=== PATIENT | female | born 1955 | race Hispanic/Latino ===

== ENCOUNTER → 2017-12-23 | Day surgery (SDC) | payer MEDICARE ==
[2017-12-22 11:30] LABS: BLOOD UREA NITROGEN 14 mg/dL (7-26); BUN/CREATININE RATIO 18 (6-25); CALCIUM 10.2 mg/dL (8.4-10.2); CARBON DIOXIDE 29 mmol/L (22-29); CHLORIDE 104 mmol/L (98-107); CREATININE, SERUM 0.79 mg/dL (0.57-1.11); EST GLOMERULAR FILTRATION RATE > 60 ML/MIN (60-); GLUCOSE 116 mg/dL (74-118); SODIUM 142 mmol/L (136-145)
[~2017-12-23] MED LIST: BACITRACIN 50,000 UNIT VIAL ONE; BUPIVACAINE 0.25%/EPI 30ML SDV INJ ONE; CEFAZOLIN SOD 1 GM VIAL ONE; DEXAMETHASONE SOD PHOS INJ 4 MG/ML VIAL ONE; ESTROGENS CONJUGATED VAGINAL CR 45 GM TUBE PV ONE; FENTANYL CITRATE/PF 100MCG/2 ML INJ ONE; HYDROMORPHONE 1MG/1ML INJ ONE; IOPAMIDOL 300MG/ML 50ML INFUS..BTL IV ONE; LIDOCAINE HCL 2% LOCAL INJ 5 ML SDV VIAL INJ ONE; LISINOPRIL PO; LISINOPRIL-HCT1 EAC2; MACRODANTIN100 MG PO; METHYLENE BLUE 1% INJ 10 ML VIAL INJ ONE; MIDAZOLAM HCL 2 MG/2 ML VIAL ONE; ONDANSETRON HCL INJ 2 MG/ML VIAL ONE; OXYBUTYNIN PO; PROPOFOL IV EMULSION 10 MG/ML 20 ML VIAL ONE; SEVOFLURANE INHAL SOLN 250 ML PEN BTL ONE; SODIUM CHLORIDE 0.9% INH ONE; TOBRAMYCIN 40 MG/ML 2ML VIAL ONE; TOBRAMYCIN INH ONE; ULTRAM50 MG PO
--- NOTE | 2017-12-23 17:32 | Operative Report ---
DATE OF PROCEDURE: December 23, 2017 PREOPERATIVE DIAGNOSES 1. Stress urinary incontinence. 2. Small cystocele. 3. Bladder lesions. 4. Cystitis cystica (?). 5. History of urinary tract infection. POSTOPERATIVE DIAGNOSES 1. Stress urinary incontinence. 2. Small cystocele. 3. Bladder lesions. 4. Cystitis cystica (?). 5. History of urinary tract infection. OPERATIONS PERFORMED: 1. Cystoscopy and bilateral retrograde pyelograms under fluoroscopic control. 2. Bladder biopsy. 3. Fulguration of bleeding point. 4. Interpretation of x-ray. Radiologist not present. 5. Supervision of fluoroscopy. Radiologist not present. 6. Mid ureteral sling, Ethicon device. ANALYTICAL LABORATORY TECHNICIAN: None. ANESTHESIA: General. CLINICAL INDICATION NOTE: This is a 62-year-old patient with significant stress type of urinary incontinence. She has history of urinary tract infections as well. She was brought for assessment of the lower and upper tract and placement of mid urethral sling. The procedure was discussed with the patient at length, the potential benefit and complication discussed, explained and accepted. DESCRIPTION OF PROCEDURE AND FINDINGS: After proper level of anesthesia was achieved, she was placed in lithotomy position and prepped and draped in sterile fashion. Urethra was inspected and it was unremarkable. Outlet is normal. Bladder mucosa demonstrated inflammatory changes that suggested cystitis cystica. Management Instructor lottie were biopsied and any visible bleeding points were carefully coagulated. Bilateral retrogrades were done using a cone-tip catheter. The upper tracts were unremarkable bilaterally with no obstruction and no stone. Following this an 18-Nepali Kelsey catheter was inserted. Marcaine was injected over the obturator bilaterally as well as the midline of the vaginal wall. Following this, a short incision was made in the midline. Dissection was carried to each side using Metzenbaum and blunt dissection. Following this, TVT sling was inserted bilaterally. Insertion was done from in, out through the obturator fossae on each side. Following this adjustment of the sling was done and Hegar #7 was placed between the urethra and the sling to prevent any over compression of the urethra. Plastic sheath was then removed and the excessive sling was excised. Following this, the wound was irrigated with saline. The vaginal incision was closed using 2-0 Vicryl running suture. Then 4-0 chromic was used to close the pinhole incision over the obturator fossae on each side. Tegaderm dressing was placed on this area. The vaginal packing was done using Premarin cream. The Kelsey catheter 18-Nepali was kept in place. Before finishing the procedure, cystoscopy was done again and no intrinsic lesion was identified. Following this the Kelsey was placed. Patient was transferred in satisfactory condition to recovery room. Postop orders and instruction given as well as followup. Job#: [id number] ALIYAH
== END | disposition home or self-care (01) ==
LOC: OR 11:32
PROVIDERS: ATTEND Urology
DX: N39.3 Stress incontinence (female) (male) (principal); N81.10 Cystocele, unspecified; N32.9 Bladder disorder, unspecified; I10 Essential (primary) hypertension; R00.1 Bradycardia, unspecified; Z01.810 Encounter for preprocedural cardiovascular examination; Z01.812 Encounter for preprocedural laboratory examination; Z87.440 Personal history of urinary (tract) infections
CPT/HCPCS: 36415; 52204; 57288; 74420; 80048; 88305; 93005; C1758; J0690; J1100; J1170; J2001; J2250; J2405; J3260; J7050; Q9967

== ENCOUNTER → 2018-04-20 | Outpatient (CLI) | payer MEDICARE ==
[~2018-04-20] MED LIST changes: -BACITRACIN 50,000 UNIT VIAL ONE; -BUPIVACAINE 0.25%/EPI 30ML SDV INJ ONE; -CEFAZOLIN SOD 1 GM VIAL ONE; -DEXAMETHASONE SOD PHOS INJ 4 MG/ML VIAL ONE; -ESTROGENS CONJUGATED VAGINAL CR 45 GM TUBE PV ONE; -FENTANYL CITRATE/PF 100MCG/2 ML INJ ONE; -HYDROMORPHONE 1MG/1ML INJ ONE; -IOPAMIDOL 300MG/ML 50ML INFUS..BTL IV ONE; -LIDOCAINE HCL 2% LOCAL INJ 5 ML SDV VIAL INJ ONE; -METHYLENE BLUE 1% INJ 10 ML VIAL INJ ONE; -MIDAZOLAM HCL 2 MG/2 ML VIAL ONE; -ONDANSETRON HCL INJ 2 MG/ML VIAL ONE; -PROPOFOL IV EMULSION 10 MG/ML 20 ML VIAL ONE; -SEVOFLURANE INHAL SOLN 250 ML PEN BTL ONE; -SODIUM CHLORIDE 0.9% INH ONE; -TOBRAMYCIN 40 MG/ML 2ML VIAL ONE; -TOBRAMYCIN INH ONE
--- NOTE | 2018-05-11 08:21 | Diagnostic Imaging Report ---
#[id number] - MGSCRBIL #BILATERAL DIGITAL SCREENING MAMMOGRAM WITH CAD: 04/20/2018 CLINICAL: Routine screening. Comparison is made to exams dated: 03/17/2017 mammogram, 08/15/2015 mammogram, 08/15/2015 ultrasound, 08/06/2015 ultrasound and 08/06/2015 mammogram - [facility]. Current study contains 6 films. There are scattered fibroglandular elements in both breasts. Current study was also evaluated with a Computer Aided Detection (CAD) system. There are benign calcifications in both breasts. There also is a biopsy clip in the left breast. No significant masses, calcifications, or other findings are seen in either breast. There has been no significant interval change. IMPRESSION: BENIGN There is no mammographic evidence of malignancy. A 1 year screening mammogram is recommended. The patient will be notified by letter of the results. Tello briones/cristino:05/10/2018 07:05:46 Database Programmer Analyst: Flor JACOBS(Rohit)(M), [facility] letter sent: Normal Exam Mammogram BI-RADS: 2 Benign
== END ==
LOC: MAMMO 07:46
PROVIDERS: ATTEND Internal Medicine
DX: Z12.31 Encounter for screening mammogram for malignant neoplasm of breast (principal)
CPT/HCPCS: 77067

== ENCOUNTER → 2019-05-14 | Outpatient (CLI) | payer MEDICARE ==
--- NOTE | 2019-05-18 08:23 | Diagnostic Imaging Report ---
#[id number] - MGSCRBIL #BILATERAL DIGITAL SCREENING MAMMOGRAM WITH CAD: 05/14/2019 CLINICAL: Routine screening. Comparison is made to exams dated: 04/20/2018 mammogram - [facility] and 03/17/2017 mammogram - [facility]. Current study contains 4 films. There are scattered fibroglandular elements in both breasts. Current study was also evaluated with a Computer Aided Detection (CAD) system. Benign appearing calcifications are noted bilaterally. A clip is noted in the left breast. No significant masses, calcifications, or other findings are seen in either breast. IMPRESSION: BENIGN There is no mammographic evidence of malignancy. A 1 year screening mammogram is recommended. The patient will be notified by letter of the results. SANYA BARAJAS M.D. ct/penrad:05/17/2019 17:13:31 Pushcart Peddler: Flor JACOBS(Rohit)(Megan), [facility] letter sent: Normal Exam Mammogram BI-RADS: 2 Benign
== END ==
LOC: MAMMO 09:10
PROVIDERS: ATTEND Internal Medicine
DX: Z12.31 Encounter for screening mammogram for malignant neoplasm of breast (principal)
CPT/HCPCS: 77067

== ENCOUNTER → 2019-08-14 | Day surgery (SDC) | payer MEDICARE ==
[~2019-08-14] MED LIST changes: +BUPIVACAINE HCL 0.5% INJ 30 ML VIAL INJ ONE; +EPHEDRINE SULFATE INJ 50 MG/ML VIAL ONE; +FENTANYL CITRATE/PF 100MCG/2 ML INJ ONE; +LIDOCAINE HCL 2% LOCAL INJ 5 ML SDV VIAL INJ ONE; +MIDAZOLAM HCL 2 MG/2 ML VIAL ONE; +NEOSTIGMINE 1 MG/ML 10ML VIAL ONE; +ONDANSETRON HCL INJ 2MG/ML 2ML 2 MG/ML VIAL ONE; +PROPOFOL IV EMULSION 10 MG/ML 20 ML VIAL ONE; +SEVOFLURANE INHAL SOLN 250 ML PEN BTL ONE
[2019-08-14] MEDS: CEFAZOLIN SOD 1 GM/NS 50ML 100 ML IV ONE (07:52)
[2019-08-14] MEDS: FENTANYL CITRATE/PF 100MCG/2 ML INJ ONE (10:37)
[2019-08-14 10:55] VITALS: BP 106/63
--- NOTE | 2019-08-14 16:58 | Operative Report ---
DATE OF PROCEDURE: 08/14/2019 SURGEON: Hattie Reyna DPM PREOPERATIVE DIAGNOSES: 1. Hallux abductovalgus. 2. Hallux interphalangeus. 3. Tailor bunion. POSTOPERATIVE DIAGNOSES: 1. Hallux abductovalgus. 2. Hallux interphalangeus. 3. Tailor bunion. PROCEDURES: 1. Devyn bunionectomy, right. 2. Haseeb osteotomy, right. 3. Tailor bunionectomy, right. 4. Use of human allograft to prevent adhesions and wound healing. COMPLICATIONS: None. CONDITION: Stable. PROCEDURE IN DETAIL: Under mild sedation, the patient was brought to the operating room, placed on the operating table in supine position. Following IV sedation, anesthesia was obtained with a general anesthetic. At this point, the right foot scrubbed, prepped, and draped in usual aseptic manner. It was then lowered to the table. Attention was directed to the dorsal aspect of the foot after the tourniquet was inflated to 250 mmHg. The leg was lowered to the table. Attention was then directed to the dorsal aspect of the right foot, where a linear incision was made overlying the 1st metatarsophalangeal joint. Incision was deepened via sharp and blunt dissection down to the level of the capsule. A linear capsulotomy was then performed. The capsule was reflected off the head of metatarsal. At this point, the head of the 1st metatarsal was visualized. The large dorsal and lateral exostosis were removed utilizing an oscillating saw. A decompression osteotomy was then performed at the 1st metatarsophalangeal joint. Thereby decreasing the intermetatarsal angle and decompressing the osteotomy. It was then fixated utilizing 2 screws, 2-0 screws, 18 and 16 mm. There was noted to be adequate compression clinically with the use of intraoperative fluoroscopy. The area was then flushed with copious amount of normal sterile saline solution. Attention was then directed to the proximal phalangeal joint, where a linear incision was made overlying the proximal phalanx. An incision was then deepened down to the level of the capsule. The capsule was then reflected off the phalanx. A guidewire was then used. An Haseeb osteotomy was then performed. It was then fixated leaving the lateral cortex intact. It was then fixated utilizing a 10 mm stapler. There was noted to be adequate compression clinically with the use of intraoperative fluoroscopy. The area was then flushed with copious amount of normal sterile saline solution. Tailor bunionectomy. Attention was directed to the lateral foot of the right foot, where a linear incision was made overlying the 5th MPJ. The incision was deepened down to the level of the capsule. The capsule was then reflected off the 5th MPJ. There was noted to be a lateral exostosis. Utilizing an oscillating saw, it was removed. The area was then made smooth. All incisions were flushed with copious amount of normal sterile saline solution and they were closed closing the deepest layer with 2-0 Vicryl. Human allograft was then inserted into the area of subcutaneous layer right to the nerve to prevent adhesions and to promote healing. The next layer was closed with 4-0 Vicryl and 4-0 nylon. Clean dressing was applied consisting of ointment, 4x4s, Kerlix, and an Toni bandage. The tourniquet was deflated. There was noted to be hyperemic response to all the digits. The patient tolerated the procedure and anesthesia well without complications, was transported to recovery room with vital signs stable and vascular status intact to both feet. The patient will be discharged home when she meets criteria. She was given instructions to be nonweightbearing, to ice and elevate the foot while at rest, followup with me in the office, and to call the office if any questions, concerns, or new problems arise. GHADA Arteaga/DANILO /[id number]
== END | disposition home or self-care (01) ==
LOC: OR 06:07
PROVIDERS: ATTEND Podiatrist Foot & Ankle Surgery
DX: M20.11 Hallux valgus (acquired), right foot (principal); M20.5X1 Other deformities of toe(s) (acquired), right foot; M21.621 Bunionette of right foot; I10 Essential (primary) hypertension
CPT/HCPCS: 28110; 28299; J0690; J2001; J2250; J2405; J2704; J2710; J3010

== ENCOUNTER → 2020-05-26 | Outpatient (CLI) | payer MEDICARE ==
[~2020-05-26] MED LIST changes: -BUPIVACAINE HCL 0.5% INJ 30 ML VIAL INJ ONE; -EPHEDRINE SULFATE INJ 50 MG/ML VIAL ONE; -FENTANYL CITRATE/PF 100MCG/2 ML INJ ONE; -LIDOCAINE HCL 2% LOCAL INJ 5 ML SDV VIAL INJ ONE; -MIDAZOLAM HCL 2 MG/2 ML VIAL ONE; -NEOSTIGMINE 1 MG/ML 10ML VIAL ONE; -ONDANSETRON HCL INJ 2MG/ML 2ML 2 MG/ML VIAL ONE; -PROPOFOL IV EMULSION 10 MG/ML 20 ML VIAL ONE; -SEVOFLURANE INHAL SOLN 250 ML PEN BTL ONE
== END ==
LOC: MAMMO 10:56
PROVIDERS: ATTEND Internal Medicine
DX: Z12.31 Encounter for screening mammogram for malignant neoplasm of breast (principal)
CPT/HCPCS: 77067